=== PATIENT | female | born 1930 | race Caucasian/White ===

== ENCOUNTER 2019-02-13 11:07 | Inpatient (IN) | payer OTHER, MEDICAID ==
[~2019-02-13] VITALS: Ht 160 cm; Wt 48.7 kg
[2019-02-13 11:27] VITALS: BP 133/81
[2019-02-13] MEDS ORDERED: BISACODYL 10 MG SUPP PR PRN (11:30)
[2019-02-13] MEDS ORDERED: DOCUSATE 100 MG CAPSULE PO PRN (11:30)
[2019-02-13] MEDS ORDERED: POLYETHYLENE GLYCOL 17 GM PACKET PO PRN (11:30)
[2019-02-13] MEDS ORDERED: CALC300T5 PO (12:29)
[2019-02-13] MEDS ORDERED: TRAM50TA2 PO (12:29)
[2019-02-13] MEDS ORDERED: OMEP40CA6 PO (12:29)
[2019-02-13] MEDS ORDERED: MELA1TAB22 PO (12:29)
[2019-02-13] MEDS ORDERED: ALPR-475 PO (12:29)
[2019-02-13] MEDS ORDERED: TAMS-11 PO (12:29)
[2019-02-13] MEDS ORDERED: DEXT15DR17 OP (12:29)
[2019-02-13] MEDS ORDERED: OXYB5TAB7 PO ×2 (12:29→12:31)
[2019-02-13] MEDS ORDERED: TOLT2TAB4 PO (12:29)
[2019-02-13 12:44] VITALS: BP 133/81
[2019-02-13 14:46] LABS: ANION GAP 9 mmol/L (5-15); CALCIUM 8.8 mg/dL (8.5-10.1); CHLORIDE 106 mmol/L (98-107); CHOLESTEROL, TOTAL 214 mg/dL (140-239); CREATININE 0.94 mg/dL (0.55-1.02)
[2019-02-13 15:01] LABS: MD YES; MEAN CORPUSCULAR HEMOGLOBIN 25.4 pg (27.0-34.8); MEAN CORPUSCULAR HGB CONC 32.5 g/dL (32.4-35.8); MEAN CORPUSCULAR VOLUME 78.3 fL (80-100); PLATELET COUNT 496 x10^3/uL (130-400); RED BLOOD COUNT 4.38 x10^6/uL (3.82-5.3); RED CELL DISTRIBUTION WIDTH 18.9 % (9.6-15.2)
[2019-02-13 15:04] LABS: BAND#(MANUAL) 0.23 x10^3/uL; BANDS%(MANUAL) 3 % (0-7); BASOS#(MANUAL) 0.15 x10^3/uL (0-0.1); BASOS% (MANUAL) 2 % (0-1); EOS#(MANUAL) 0.39 x10^3/uL (0.0-0.4); EOS% (MANUAL) 5 % (1-7); LYMPH#(MANUAL) 1.54 x10^3/uL (1-3.4); LYMPHS% (MANUAL) 20 % (22-44); MONOS#(MANUAL) 0.23 x10^3/uL (0.3-2.7); MONOS% (MANUAL) 3 % (2-9); REACTIVE LYMPHS # (MANUAL) 0.23 x10^3/uL (0-0); REACTIVE LYMPHS % (MANUAL) 3 % (0-0); SEG#(MANUAL) 4.93 x10^3/uL (1.8-6.8); SEGS% (MANUAL) 64 % (42-75)
[2019-02-13 15:05] LABS: <PLATELET ESTIMATE> INCREASED; <PLT MORPHOLOGY> NORMAL PLT MORPH; <RBC MORPHOLOGY> NORMAL
[2019-02-13 15:12] LABS: CHOL/HDL RATIO 2.5; FOLATE LEVEL 8.1 ng/mL (3.1-17.5); FREE T4 (FREE THYROXINE) 1.09 ng/dL (0.76-1.46); HDL CHOL % 41 % (28-40); HDL CHOLESTEROL (DIRECT) 87 mg/dL (40-60); LDL CHOLESTEROL,CALCULATED 112 mg/dL (54-169); LDL/HDL RATIO 1.3 (0.5-3.0); TRIGLYCERIDES 75 mg/dL (50-200); VLDL CHOLESTEROL 15 mg/dL (0-25)
[2019-02-13 16:29] LABS: MICROSCOPIC NOT IND
[2019-02-13 16:33] LABS: CULTURE INDICATED? NO
[2019-02-13 19:54] VITALS: BP 139/75
[2019-02-13] MEDS: MELATONIN 3 MG TABLET PO PRN ×2 (20:02→20:46)
[2019-02-13] MEDS: TAMSULOSIN 0.4 MG CAP.ER.24H PO SCH (20:02)
[2019-02-14] MEDS ORDERED: CALCIUM CARBONATE 500 MG TAB.CHEW PO PRN (02:00)
[2019-02-14] MEDS ORDERED: ACETAMINOPHEN 325 MG TABLET PO PRN (05:00)
[2019-02-14 07:23] VITALS: BP 121/78
[2019-02-14] MEDS: TOLTERODINE 2MG TABLET PO SCH (08:49)
[2019-02-14] MEDS: OMEPRAZOLE 20 MG CAPSULE.DR PO SCH (08:49)
[2019-02-14 09:51] LABS: ALBUMIN 2.8 g/dL (3.4-5.0); ANION GAP 8 mmol/L (5-15); CALCIUM 8.9 mg/dL (8.5-10.1); CHLORIDE 110 mmol/L (98-107)
[2019-02-14 09:53] LABS: ALANINE AMINOTRANSFERASE 12 U/L (12-78); ALKALINE PHOSPHATASE 66 U/L (45-117); BILIRUBIN,TOTAL 0.3 mg/dL (0.2-1.0); CREATININE 0.96 mg/dL (0.55-1.02); TOTAL PROTEIN 6.9 g/dL (6.4-8.2)
[2019-02-14 19:57] VITALS: BP 121/70
[2019-02-14] MEDS: TAMSULOSIN 0.4 MG CAP.ER.24H PO SCH (20:07)
[2019-02-14] MEDS: MELATONIN 3 MG TABLET PO PRN (20:56)
[2019-02-15 07:16] VITALS: BP 115/68
[2019-02-15] MEDS: TOLTERODINE 2MG TABLET PO SCH (08:23)
[2019-02-15] MEDS: OMEPRAZOLE 20 MG CAPSULE.DR PO SCH (08:26)
[2019-02-15 19:30] VITALS: BP 116/70
[2019-02-15] MEDS: TAMSULOSIN 0.4 MG CAP.ER.24H PO SCH (19:56)
[2019-02-15] MEDS: MELATONIN 3 MG TABLET PO PRN (20:32)
[2019-02-16 07:34] VITALS: BP 115/68
[2019-02-16] MEDS: OMEPRAZOLE 20 MG CAPSULE.DR PO SCH ×2 (08:00→08:27)
[2019-02-16] MEDS: TOLTERODINE 2MG TABLET PO SCH (08:28)
[2019-02-16 19:42] VITALS: BP 112/72
[2019-02-16] MEDS: TAMSULOSIN 0.4 MG CAP.ER.24H PO SCH (20:03)
[2019-02-17] MEDS: OMEPRAZOLE 20 MG CAPSULE.DR PO SCH (05:23)
[2019-02-17 07:22] VITALS: BP 112/69
[2019-02-17] MEDS: TOLTERODINE 2MG TABLET PO SCH (08:48)
[2019-02-17] MEDS: ACETAMINOPHEN 325 MG TABLET PO PRN (18:55)
[2019-02-17 19:51] VITALS: BP 120/69
[2019-02-17] MEDS: TAMSULOSIN 0.4 MG CAP.ER.24H PO SCH (20:08)
[2019-02-17] MEDS: MELATONIN 3 MG TABLET PO PRN (20:31)
[2019-02-18] MEDS: OMEPRAZOLE 20 MG CAPSULE.DR PO SCH (05:52)
[2019-02-18 07:09] VITALS: BP 111/68
[2019-02-18] MEDS: TOLTERODINE 2MG TABLET PO SCH (09:02)
[2019-02-18] MEDS: ACETAMINOPHEN 325 MG TABLET PO PRN (13:31)
[2019-02-18 19:41] VITALS: BP 105/68
[2019-02-18] MEDS: TAMSULOSIN 0.4 MG CAP.ER.24H PO SCH (19:59)
[2019-02-18] MEDS: MELATONIN 3 MG TABLET PO PRN (20:26)
[2019-02-19] MEDS: OMEPRAZOLE 20 MG CAPSULE.DR PO SCH (05:58)
[2019-02-19 07:25] VITALS: BP 113/70
[2019-02-19] MEDS: TOLTERODINE 2MG TABLET PO SCH (08:47)
[2019-02-19] MEDS: ACETAMINOPHEN 325 MG TABLET PO PRN ×2 (10:45→22:58)
[2019-02-19 19:54] VITALS: BP 125/76
[2019-02-19] MEDS: TAMSULOSIN 0.4 MG CAP.ER.24H PO SCH (20:02)
[2019-02-19] MEDS: MELATONIN 3 MG TABLET PO PRN (20:35)
[2019-02-20 07:29] VITALS: BP 122/70
[2019-02-20] MEDS: TOLTERODINE 2MG TABLET PO SCH (08:03)
[2019-02-20] MEDS: OMEPRAZOLE 20 MG CAPSULE.DR PO SCH (08:06)
[2019-02-20] MEDS: ACETAMINOPHEN 325 MG TABLET PO PRN (16:34)
[2019-02-20 19:14] VITALS: BP 100/65
[2019-02-20] MEDS: TAMSULOSIN 0.4 MG CAP.ER.24H PO SCH (20:00)
[2019-02-20] MEDS: MELATONIN 3 MG TABLET PO PRN (20:26)
[2019-02-21] MEDS: ACETAMINOPHEN 325 MG TABLET PO PRN ×4 (00:18→22:05)
[2019-02-21 07:30] VITALS: BP 124/66
[2019-02-21] MEDS: OMEPRAZOLE 20 MG CAPSULE.DR PO SCH (07:30)
[2019-02-21] MEDS: TOLTERODINE 2MG TABLET PO SCH (08:05)
[2019-02-21 19:34] VITALS: BP 113/71
[2019-02-21] MEDS: TAMSULOSIN 0.4 MG CAP.ER.24H PO SCH (20:06)
[2019-02-21] MEDS: MELATONIN 3 MG TABLET PO PRN (20:35)
[2019-02-22] MEDS: ACETAMINOPHEN 325 MG TABLET PO PRN ×2 (04:34→10:53)
[2019-02-22] MEDS: OMEPRAZOLE 20 MG CAPSULE.DR PO SCH (06:20)
[2019-02-22 07:30] VITALS: BP 125/56
[2019-02-22] MEDS: TOLTERODINE 2MG TABLET PO SCH (08:52)
[2019-02-22] MEDS ORDERED: PRAZ1POW3 PO (17:09)
[2019-02-22] MEDS ORDERED: DULO30CA4 PO (17:09)
[2019-02-22] MEDS ORDERED: HYDR25CA94 PO (17:09)
[2019-02-22] MEDS ORDERED: TRAZ5POW PO (17:09)
[2019-02-22 19:34] VITALS: BP 136/91
[2019-02-22] MEDS: TAMSULOSIN 0.4 MG CAP.ER.24H PO SCH (20:06)
[2019-02-23] MEDS: OMEPRAZOLE 20 MG CAPSULE.DR PO SCH (05:38)
[2019-02-23 07:27] VITALS: BP 102/62
[2019-02-23] MEDS: ACETAMINOPHEN 325 MG TABLET PO PRN ×3 (08:28→20:16)
[2019-02-23] MEDS: TOLTERODINE 2MG TABLET PO SCH (08:28)
[2019-02-23] MEDS: DIVALPROEX 125 MG CAP.SPRINK PO SCH ×3 (14:06→19:57)
[2019-02-23] MEDS: TAMSULOSIN 0.4 MG CAP.ER.24H PO SCH (19:55)
[2019-02-23 20:00] VITALS: BP 118/75
[2019-02-23] MEDS: MELATONIN 3 MG TABLET PO PRN (20:16)
[2019-02-24] MEDS: TOLTERODINE 2MG TABLET PO SCH (07:19)
[2019-02-24] MEDS: DIVALPROEX 125 MG CAP.SPRINK PO SCH (07:19)
[2019-02-24] MEDS: OMEPRAZOLE 20 MG CAPSULE.DR PO SCH (07:22)
[2019-02-24 07:42] VITALS: BP 101/87
== END 2019-02-24 11:05 | DRG 57 ==
LOC: 3E 11:30
PROVIDERS: ADMIT Psychiatry & Neurology Psychosomatic Medicine; ATTEND Psychiatry & Neurology Psychosomatic Medicine
DX: G30.9 Alzheimer's disease, unspecified (principal); N39.0 Urinary tract infection, site not specified; G93.49 Other encephalopathy; F02.81 Dementia in other diseases classified elsewhere, unspecified severity, with behavioral disturbance; R26.81 Unsteadiness on feet; R39.15 Urgency of urination; D50.9 Iron deficiency anemia, unspecified; F32.9 Major depressive disorder, single episode, unspecified; F41.9 Anxiety disorder, unspecified; G47.00 Insomnia, unspecified; R41.9 Unspecified symptoms and signs involving cognitive functions and awareness; G89.29 Other chronic pain; H91.90 Unspecified hearing loss, unspecified ear; I10 Essential (primary) hypertension; K21.9 Gastro-esophageal reflux disease without esophagitis; Z79.899 Other long term (current) drug therapy; Z86.718 Personal history of other venous thrombosis and embolism; Z95.828 Presence of other vascular implants and grafts; Z88.6 Allergy status to analgesic agent; Z88.0 Allergy status to penicillin; Z88.2 Allergy status to sulfonamides; Z88.8 Allergy status to other drugs, medicaments and biological substances
CPT/HCPCS: 36415; 80048; 80053; 80061; 81003; 82607; 82746; 84439; 84443; 85025; 86592; 93005; 92523-GN

== ENCOUNTER 2020-05-14 04:12 | Emergency (ER) | payer OTHER, MEDICAID ==
[~2020-05-14] VITALS: Ht 162.6 cm; Wt 54.0 kg
[~2020-05-14 04:12] MED LIST: ALPR0.5T7 PO; CALC300T5 PO; DEXT15DR17 OP; DULO30CA4 PO; HYDR25CA94 PO; MELA1TAB22 PO; OMEP40CA42 PO; OXYB5TAB10 PO; PRAZ1POW3 PO; TAMS-11 PO; TOLT2TAB4 PO; TRAM50TA2 PO; TRAZ5POW PO
--- NOTE | 2020-05-14 04:27 | NUR ---
pt BIB [facility] after being found down at assisted lived facility, [place], pt has a 1 inch by 1 inch hematoma noted on left side of head, pt is [place]. LOC at time of GLF unknown. first pt contact: PT STATES SHE "FELL AND HIT MY HEAD", PT DENIES ANY DIZZINESS, HEADACHE, OR LIGHT HEADEDNESS, GROSS NEURO INTACT, ASSISTED FACILITY REPORTS PT IS NORM FOR HER BASELINE, ANOx2, LOC UNKNOWN PT DENIES AT THIS TIME. PT VSS. APPEARS RELAXED AND COMFORTABLE ON GURNEY. WCTM. past medical diagnosis dementia.
[2020-05-14] MEDS ORDERED: MELA5TAB14 PO (04:55)
[2020-05-14] MEDS ORDERED: SUVO10TA PO (04:55)
[2020-05-14] MEDS ORDERED: DIPH25CA61 PO (04:55)
[2020-05-14] MEDS ORDERED: MAGN400O7 PO (04:55)
[2020-05-14] MEDS ORDERED: DIVA500T4 PO (04:55)
--- NOTE | 2020-05-14 05:12 | NUR ---
PT TO CT VIA [facility], NO CHANGE IN CONDITION, WCTM. NAD, VSS.
[2020-05-14 05:37] LABS: MEAN CORPUSCULAR HEMOGLOBIN 29.9 pg (27.0-34.8); MEAN CORPUSCULAR VOLUME 90.8 fL (80-100); MEAN PLATELET VOLUME 7.7 fL (7.4-10.4); PLATELET COUNT 256 x10^3/uL (130-400); RED CELL DISTRIBUTION WIDTH 21.8 % (9.6-15.2)
[2020-05-14 05:38] VITALS: BP 124/74
--- NOTE | 2020-05-14 05:39 | NUR ---
UA SENT TO LAB, PT RESTING IN [facility] APPEARS COMFORTABLE. NAD. RESP WNL. NO CHANGES IN CONDITION, WCTM.
[2020-05-14 05:43] LABS: ALBUMIN 2.5 g/dL (3.4-5.0); ANION GAP 5 mmol/L (5-15); CALCIUM 8.2 mg/dL (8.5-10.1); CHLORIDE 111 mmol/L (98-107); CREATININE 0.95 mg/dL (0.55-1.02)
[2020-05-14 05:47] LABS: CREATINE KINASE, TOTAL 26 U/L (26-192); TROPONIN I 0.019 ng/mL (0.000-0.045)
[2020-05-14 05:53] LABS: MICROSCOPIC INDICATED
--- NOTE | 2020-05-14 06:06 | NUR ---
RN UNABLE TO LEAVE BS DUE TO PT TRYING TO CRAWL OUT OF BED. PT SCREAMING "I WANT TO GO HOME. I. WANT. TO. GO. HOME!" AND TELLING RN TO "GET OUT OF HERE YOU ROTTEN BITCH." PT NAD, VSS, WCTM. WAITING ON RESULTS
[2020-05-14 06:07] LABS: BASOPHILS # (AUTO) 0.04 x10^3/uL (0-0.1); BASOPHILS % (AUTO) 1 % (0-1); EOSINOPHILS # (AUTO) 0.14 x10^3/uL (0-0.4); EOSINOPHILS % (AUTO) 2 % (1-7); LYMPHOCYTES % (AUTO) 29 % (22-44); MD SCAN; MONOCYTES # (AUTO) 0.72 x10^3/uL (0.2-0.8); MONOCYTES % (AUTO) 12 % (2-9); NEUTROPHILS # (AUTO) 3.35 x10^3/uL (1.8-6.8); NEUTROPHILS % (AUTO) 56 % (42-75)
== END 2020-05-14 07:08 | disposition home or self-care (01) ==
LOC: ED 06:17
DX: S09.90XA Unspecified injury of head, initial encounter (principal); N30.00 Acute cystitis without hematuria; R94.31 Abnormal electrocardiogram [ECG] [EKG]; Z79.899 Other long term (current) drug therapy; Z88.0 Allergy status to penicillin; Z88.9 Allergy status to unspecified drugs, medicaments and biological substances; W06.XXXA Fall from bed, initial encounter; Y93.89 Activity, other specified; Y92.89 Other specified places as the place of occurrence of the external cause; Y99.8 Other external cause status
CPT/HCPCS: 36415; 70450; 80048; 81001; 82040; 82550; 83880; 84484; 85025; 93005; 99285